=== PATIENT | female | born 1940 | race Hispanic/Latino ===

== ENCOUNTER 2018-08-13 08:23 | Day surgery (SDC) | payer MEDICARE ==
[~2018-08-13] VITALS: Ht 152.4 cm; Wt 68.0 kg
[2018-08-13] MEDS ORDERED: PROPOFOL 10 MG/ML 20ML VIAL IV ONE (09:18)
[2018-08-13] MEDS ORDERED: CALC0.253 PO (09:26)
[2018-08-13] MEDS ORDERED: renavite PO (09:26)
[2018-08-13] MEDS ORDERED: GLIP2.5T2 PO (09:26)
[2018-08-13] MEDS ORDERED: CALC667C10 PO (09:26)
[2018-08-13] MEDS ORDERED: NIFE90TA38 PO (09:26)
[2018-08-13] MEDS ORDERED: PHENYLEPHRINE HCL 10 MG/ML 1ML VIAL IV ONE (09:44)
[2018-08-13 09:54] VITALS: BP 98/36
[2018-08-13 10:00] VITALS: BP 103/41
[2018-08-13 10:05] VITALS: BP 99/48
[2018-08-13 10:10] VITALS: BP 121/30
[2018-08-13 10:15] VITALS: BP 140/56
[2018-08-13 10:20] VITALS: BP 147/81
== END 2018-08-13 10:38 | disposition home or self-care (01) ==
LOC: ENDO 08:23 → DAH 08:23 → ENDO 10:38
PROVIDERS: ATTEND Internal Medicine
DX: D12.2 Benign neoplasm of ascending colon (principal); D12.0 Benign neoplasm of cecum; K20.8 Other esophagitis; K31.9 Disease of stomach and duodenum, unspecified; D50.9 Iron deficiency anemia, unspecified; K57.30 Diverticulosis of large intestine without perforation or abscess without bleeding; K29.50 Unspecified chronic gastritis without bleeding; M81.0 Age-related osteoporosis without current pathological fracture; Z68.30 Body mass index [BMI] 30.0-30.9, adult; Z79.899 Other long term (current) drug therapy; Z79.84 Long term (current) use of oral hypoglycemic drugs; Z98.890 Other specified postprocedural states; Z86.010 Personal history of colon polyps; I12.0 Hypertensive chronic kidney disease with stage 5 chronic kidney disease or end stage renal disease; E11.22 Type 2 diabetes mellitus with diabetic chronic kidney disease; N18.6 End stage renal disease; I48.91 Unspecified atrial fibrillation; K44.9 Diaphragmatic hernia without obstruction or gangrene; K64.1 Second degree hemorrhoids
CPT/HCPCS: 36415; 43239; 43249; 45380; 45385; 82948 ×2; 84132; 88305; 88342; 93005; A4606; J2370; J2704